=== PATIENT | female | born 1980 | race Two or more races ===

== ENCOUNTER → 2019-04-23 | Day surgery (SDC) | payer OTHER ==
[~2019-04-23] VITALS: Ht 162.6 cm; Wt 81.2 kg
[~2019-04-23] MED LIST: BUPIVACAINE-EPI 0.25%-1:200000 MPF 30 ML VIAL. ONE; DEXAMETHASONE SOD PHOS 4 MG/ML VIAL ONE; GLYCOPYRROLATE 1 MG/5 ML VIAL. ONE; HYDROmorphone 2 MG/ML VIAL IV PRN; IV RINGERS,LACTATED 1000ML 1,000 ML IV SCH; KETOROLAC 30 MG/ML INJ FOR OR. INJ ONE; LIDOCAINE 1% PF 2 ML VIAL. ID PRN; LIDOCAINE 2% PF 5 ML VIAL. ONE; MEDR2.5T IM; MIDAZOLAM HCL/PF 2 MG/2 ML VIAL. IV PRN; MIDAZOLAM HCL/PF 2 MG/2 ML VIAL. ONE; MORPHINE SULFATE 2 MG/ML VIAL. IV PRN; NEOSTIGMINE METHYLSULFATE 5 MG/5 ML SYRINGE. ONE; ONDANSETRON PF 4 MG/2 ML VIAL. IV PRN; ONDANSETRON PF 4 MG/2 ML VIAL. ONE; PROCHLORPERAZINE 10 MG/2 ML VIAL. IV PRN; PROPOFOL 20 ML IV ONE; ROCURONIUM 50 MG/5 ML VIAL. ONE; SEVOFLURANE 31 TO 60 MINUTES. IH ONE; SURGICEL HEMOSTAT 4X8 EACH. ONE; ceFAZolin 2GM PREMIX 2 GM/50 ML BAG IV ONE; fentaNYL PF VIAL 100 MCG/2 ML VIAL IV PRN; fentaNYL PF VIAL 100 MCG/2 ML VIAL ONE
[2019-04-23 10:58] VITALS: BP 100/52
[2019-04-23 11:10] LABS: U PREG PATIENT NEGATIVE (NEG)
== END | disposition home or self-care (01) ==
LOC: SURG 10:29
PROVIDERS: ATTEND Obstetrics & Gynecology
DX: R10.2 Pelvic and perineal pain (principal); Z53.8 Procedure and treatment not carried out for other reasons
CPT/HCPCS: 81025; J0696; J2001; J2250; J2704; J3010; J1100; J1885; J2405; J2710; J3490

== ENCOUNTER 2019-12-27 06:23 | Day surgery (SDC) | payer OTHER ==
[~2019-12-27] VITALS: Ht 167.6 cm; Wt 75.0 kg
[~2019-12-27 06:23] MED LIST changes: -BUPIVACAINE-EPI 0.25%-1:200000 MPF 30 ML VIAL. ONE; -DEXAMETHASONE SOD PHOS 4 MG/ML VIAL ONE; -GLYCOPYRROLATE 1 MG/5 ML VIAL. ONE; -HYDROmorphone 2 MG/ML VIAL IV PRN; -IV RINGERS,LACTATED 1000ML 1,000 ML IV SCH; -KETOROLAC 30 MG/ML INJ FOR OR. INJ ONE; -LIDOCAINE 1% PF 2 ML VIAL. ID PRN; -MIDAZOLAM HCL/PF 2 MG/2 ML VIAL. IV PRN; -MIDAZOLAM HCL/PF 2 MG/2 ML VIAL. ONE; -MORPHINE SULFATE 2 MG/ML VIAL. IV PRN; -NEOSTIGMINE METHYLSULFATE 5 MG/5 ML SYRINGE. ONE; -ONDANSETRON PF 4 MG/2 ML VIAL. IV PRN; -ONDANSETRON PF 4 MG/2 ML VIAL. ONE; -PROCHLORPERAZINE 10 MG/2 ML VIAL. IV PRN; -SEVOFLURANE 31 TO 60 MINUTES. IH ONE; +SUCCINYLCHOLINE 200 MG/10 ML VIAL. ONE; -SURGICEL HEMOSTAT 4X8 EACH. ONE; -ceFAZolin 2GM PREMIX 2 GM/50 ML BAG IV ONE; +ceFAZolin SODIUM IV Push 1 GM VIAL. IVP PRN; -fentaNYL PF VIAL 100 MCG/2 ML VIAL IV PRN
[2019-12-27] MEDS ORDERED: IV RINGERS,LACTATED 1000ML 1,000 ML IV SCH (07:00)
[2019-12-27] MEDS ORDERED: ONDANSETRON PF 4 MG/2 ML VIAL. IV PRN (07:00)
[2019-12-27] MEDS ORDERED: PROCHLORPERAZINE 10 MG/2 ML VIAL. IV PRN (07:00)
[2019-12-27] MEDS ORDERED: MORPHINE SULFATE 2 MG/ML VIAL. IV PRN (07:00)
[2019-12-27] MEDS ORDERED: HYDROmorphone 2 MG/ML VIAL IV PRN (07:00)
[2019-12-27] MEDS ORDERED: fentaNYL PF VIAL 100 MCG/2 ML VIAL IV PRN (07:00)
[2019-12-27] MEDS ORDERED: BUPIVACAINE-EPI 0.25%-1:200000 MPF 30 ML VIAL. ONE (07:20)
[2019-12-27] MEDS ORDERED: SURGICEL HEMOSTAT 4X8 EACH. ONE (07:20)
[2019-12-27] MEDS ORDERED: DESFLURANE 31 TO 60 MINUTES IH ONE (08:01)
[2019-12-27] MEDS ORDERED: DEXAMETHASONE SOD PHOS 4 MG/ML VIAL ONE (08:01)
[2019-12-27] MEDS ORDERED: ONDANSETRON PF 4 MG/2 ML VIAL. ONE (08:01)
[2019-12-27] MEDS ORDERED: GLYCOPYRROLATE 1 MG/5 ML VIAL. ONE (08:13)
[2019-12-27] MEDS ORDERED: NEOSTIGMINE METHYLSULFATE 5 MG/5 ML SYRINGE. ONE (08:13)
[2019-12-27] MEDS ORDERED: FAMOTIDINE 20 MG/2 ML VIAL ONE (08:26)
--- NOTE | 2019-12-27 08:51 | PDOC ---
BRIEF OPERATIVE NOTE Date: Dec 27, 2019 Pre-Op Diagnosis 1. CPP 2. Endometriosis Post-Op Diagnosis SAme Procedure Performed [facility]C Resection Endometriosis and Bilateral Salpingectomy Surgeon Dr. Patel Anesthesia Type: General Blood Loss 10 ml Specimens Obtained Douglas. fallopian tubes, peritoneal biopsies Right abd wall, posterior culde sac x 2 and anterior culde sac Findings endometriosis involving abd wall, douglas. fallopian tubes, anterior and posterior culde sac. Douglas. ovaries nml. Complications none Operative Note see dictation RAUL PATEL Jr, MD Dec 27, 2019 08:51
--- NOTE | 2019-12-27 08:53 | DISCH ---
DISCHARGE INSTRUCTIONS Condition on Discharge Condition on Discharge: Stable Activity After Discharge Activity Instructions for Disc: Activity as tolerated Lifting Instructions after Dis: No heavy lifting Driving Instructions after Dis: Do not drive today Diet after Discharge Diet after Discharge: Regular Contacting the DRTerell after DC Call your doctor for: Concerns you may have Follow-Up Follow up with: Dr. Diaz in 1 week. RAUL DIAZ Jr, MD Dec 27, 2019 08:53
[2019-12-27] MEDS: fentaNYL PF VIAL 100 MCG/2 ML VIAL IV PRN ×2 (09:03→09:13)
[2019-12-27] MEDS ORDERED: oxyCODONE/APAP 5/325 1 TAB TABLET PO ONE ×2 (09:15)
[2019-12-27] MEDS ORDERED: OXYC-325 PO (09:15)
[2019-12-27 09:30] VITALS: BP 106/64
--- NOTE | 2019-12-27 09:54 | OP ---
DATE OF SURGERY: PREOPERATIVE DIAGNOSES: 1. Chronic pelvic pain. 2. Endometriosis. POSTOPERATIVE DIAGNOSES: 1. Chronic pelvic pain. 2. Endometriosis. PROCEDURE: Laparoscopic resection of endometriosis and bilateral salpingectomy. SURGEON: Jed Patel MD ANESTHESIA: GETA. ESTIMATED BLOOD LOSS: 10 mL. COMPLICATIONS: None. FINDINGS: Endometriosis involving the abdominal wall, bilateral fallopian tubes, anterior and posterior cul-de-sac, endometriosis stage 2. COMPLICATIONS: None. SUMMARY: A 39-year-old female with long history of chronic pelvic pain and high suspicion for endometriosis. She was counseled on the risks, benefits and expectations of laparoscopic resection of endometriosis as well as possibility of salpingectomy depending on severity of endometriosis and voiced clear understanding to proceed. DESCRIPTION OF PROCEDURE: The patient was taken to surgery suite and placed in dorsal lithotomy position. She was prepped with ChloraPrep for abdominal prep and Betadine for vaginal prep. After adequate anesthesia, bivalve speculum was placed vaginally. The anterior lip of the cervix grasped with single tooth tenaculum. [place] uterine manipulator was then placed. Sanborn speculum was removed. Attention was now placed on abdomen. Small transverse skin incision was made just below the umbilicus with a scalpel. The Veress needle was then placed through the infraumbilical incision site. The abdomen was allowed to insufflate up to 1-1/2 liters CO2 gas. The Veress needle was then removed, 5 mm trocar was placed. Scope was positioned. The uterus was visualized, and there were multiple areas of endometriosis on the right abdominal wall as well as the anterior and posterior cul-de-sac areas and some involvement of the fallopian tubes bilaterally. Additional incisions were made in the left lower quadrant, which a 5 mm trocar and an 8 mm trocar were placed. With the aid of graspers and EndoShears, the right anterior abdominal wall endometriosis area was resected. The posterior cul-de-sac was resected in two separate areas using the EndoShears along the bladder area and anterior cul-de-sac. The endometriosis was resected as well using EndoShears and blunt dissection. The areas were all hemostatic and verified with suction irrigation. We then proceeded with the salpingectomy in which the EnSeal device was utilized to dissect the right fallopian tube away from the anterior adnexa. Same process took place with the left fallopian tube. The areas were all hemostatic. Suction irrigation was utilized to verify good hemostasis. A small amount of normal saline was left in posterior cul-de-sac. The trocars were then removed under direct visualization. The abdomen was allowed to deflate as much as possible along with mechanical manipulation. The 3 skin incisions were reapproximated using 4-0 Vicryl suture in subcuticular manner. A 0.25% Marcaine with epinephrine was injected at each incision site. Uterine acorn manipulator and single tooth tenaculum were then removed. The patient tolerated the procedure well and was taken to recovery room in stable condition. Sponge and needle count correct x 3. JED PATEL MD DR: COURTNEY/chris JOB#: [id number] / [id number]
--- NOTE | 2019-12-28 17:06 | PATHOLOGY ---
[facility] Accession Number: [id number] . 01 Material submitted: . PART A: peritoneum - RIGHT ABDOMINAL WALL PERITONEAL BIOPSY. Modifiers: right, wall PART B: peritoneum - POSTERIOR PERITONEAL BIOPSY #1. Modifiers: posterior, 1 PART C: peritoneum - POSTERIOR PERITONEAL BIOPSY #2. Modifiers: posterior, 2 PART D: peritoneum - ANTERIOR CULDESAC PERITONEAL BIOPSY. Modifiers: anterior PART E: fallopian tube - RIGHT FALLOPIAN TUBE. Modifiers: right PART F: fallopian tube - LEFT FALLOPIAN TUBE. Modifiers: left . 01 Clinical history: . Endometriosis . 02 Diagnosis: A. Segment of fibromembranous, adipose, and smooth muscle tissue, right abdominal wall peritoneal biopsy: - Endometriosis, focal. . B. Segment of fibromembranous tissue, posterior peritoneal biopsy #1: - Endometriosis, focal. . C. Segment of fibromembranous and adipose tissue, posterior peritoneal biopsy #2: - Endometriosis, focal. . D. Segments of fibromembranous, adipose, and smooth muscle tissue, anterior cul-de-sac peritoneal biopsy: - Endometriosis, focal. . E. Right tubal ligation: - Segment of fallopian tube confirmed, showing congestion and cystic [place] rest. . F. Left tubal ligation: - Segment of fallopian tube confirmed, showing congestion and paratubal cyst. . (JPM:mm; 12/28/2019) [facility] 12/28/2019 1549 Local . 02 Electronically signed: . Lobo Schuler MD, Pathologist NPI- [id number] . 01 Gross description: . A. The specimen is received in formalin, labeled "Silvia Vanpelt, right abdominal wall peritoneal biopsy". Received is a segment of yellow-bui soft tissue measuring 0.7 cm in maximum dimensions. The specimen is submitted entirely in cassette A1. . B. The specimen is received in formalin, labeled "Silvia Vanpelt, posterior peritoneal biopsy #1". Received is a segment of pale bui soft tissue measuring 0.8 cm in maximum dimensions. The specimen is submitted entirely in cassette B1. . C. The specimen is received in formalin, labeled "Silvia Vanpelt, posterior peritoneal biopsy #2". Received is a segment of yellow-bui to pink-bui soft tissue measuring 1.5 cm in maximum dimensions. The specimen is submitted entirely in cassette C1. . D. The specimen is received in formalin, labeled "Silvia Vanpelt, anterior cul-de-sac peritoneal biopsy". Received are three segments of pink-bui to pink-bazzi soft tissue measuring 1.4 x 1.4 x 0.5 cm in aggregate dimensions. The specimen is submitted entirely in cassette D1. . E. The specimen is received in formalin, labeled "Silvia Vanpelt, right fallopian tube". Received is a fimbriated fallopian tube measuring 2.1 cm in length by 0.8 cm in diameter. The serosal surface is pink-purple and glistening in appearance. Sectioning reveals a patent lumen. The specimen is submitted representatively in cassette E1. . F. The specimen is received in formalin, labeled "Silvia Vanpelt, left fallopian tube". Received is a fimbriated fallopian tube measuring 3.1 cm in length by 0.6 cm in diameter. The serosal surface is pink-bui and glistening in appearance with a single cystic structure identified measuring 0.5 cm filled with clear fluid. Sectioning reveals a pinpoint to patent lumen. The specimen is submitted representatively in cassette F1. (CAA; 12/27/2019) QAC/QAC 12/27/2019 1736 Local . 02 Pathologist provided ICD-10: N80.9, N83.8 . 02 CPT . 733795, 340414, 011916, 125521, [id number], [id number] Specimen Comment: Report sent to Performed at: 01 [facility] [address] [facility] [address], [place] [id number] MD Russell Corbin MD Phone: [phone] Performed at: 02 [facility] [address] [place], [place] [id number] MD Lobo Schuler MD Phone: [phone]
== END 2019-12-27 10:05 | disposition home or self-care (01) ==
LOC: SURG 06:23
PROVIDERS: ATTEND Obstetrics & Gynecology
DX: N80.0 Endometriosis of uterus (principal); N83.8 Other noninflammatory disorders of ovary, fallopian tube and broad ligament; G43.909 Migraine, unspecified, not intractable, without status migrainosus; F41.9 Anxiety disorder, unspecified; F32.9 Major depressive disorder, single episode, unspecified; Z87.891 Personal history of nicotine dependence
CPT/HCPCS: 58661; 58662; 81025; A7015; J0330; J0690; J1100; J2001; J2405; J2704; J2710; J3010; J3490; J7030

== ENCOUNTER → 2021-08-20 | Outpatient (CLI) | payer BC, OTHER ==
[~2021-08-20] MED LIST changes: -LIDOCAINE 2% PF 5 ML VIAL. ONE; +OXYC-325 PO; -PROPOFOL 20 ML IV ONE; -ROCURONIUM 50 MG/5 ML VIAL. ONE; -SUCCINYLCHOLINE 200 MG/10 ML VIAL. ONE; -ceFAZolin SODIUM IV Push 1 GM VIAL. IVP PRN; -fentaNYL PF VIAL 100 MCG/2 ML VIAL ONE
--- NOTE | 2021-08-20 16:48 | RAD ---
EXAM: Pelvic ultrasound HISTORY: Endometriosis, left ovarian cyst. COMPARISON: None. FINDINGS: Sonographic evaluation of the pelvis was performed transabdominally and transvaginally. The uterus is anteverted and measures 8.1 x 4.2 x 3.8 cm. The endometrial stripe measures 5 mm. No ma sses are identified. There is no significant free fluid. The right ovary measures 1.9 x 1.5 x 0.9 cm. The left ovary measures 3.0 x 2.9 x 1.9 cm. There is nor mal Doppler flow bilaterally. There are no suspicious lesions. IMPRESSION: 1. No abnormality is appreciated sonographically. Electronically signed by: Russell Watson MD (08/20/2021 4:45 PM) [id number]
== END ==
LOC: US 15:27
PROVIDERS: ATTEND Obstetrics & Gynecology
DX: N83.202 Unspecified ovarian cyst, left side (principal); N80.9 Endometriosis, unspecified
CPT/HCPCS: 76830; 76856